=== PATIENT | female | born 1955 | race African-American/Black ===

== ENCOUNTER 2019-02-25 21:45 | Emergency (ER) | payer OTHER ==
[~2019-02-25] VITALS: Ht 165.1 cm; Wt 70.3 kg
[2019-02-25] MEDS ORDERED: ARICEPT 5 MG TAB5 MG PO (22:11)
[2019-02-25] MEDS ORDERED: CARVEDILOL3.125 MG PO (22:11)
[2019-02-25] MEDS ORDERED: PRINIVIL20 MG PO (22:12)
[2019-02-25] MEDS ORDERED: KLOR-CON 1010 MEQ PO (22:12)
[2019-02-25] MEDS ORDERED: HYDRALAZINE 10M10 MG PO (22:12)
[2019-02-25] MEDS ORDERED: LASIX 40 MG TAB40 M2 PO (22:12)
[2019-02-26 00:24] VITALS: BP 167/87
== END 2019-02-26 00:24 | disposition home or self-care (01) ==
LOC: ER 21:45
DX: R60.0 Localized edema (principal); I10 Essential (primary) hypertension; F03.90 Unspecified dementia, unspecified severity, without behavioral disturbance, psychotic disturbance, mood disturbance, and anxiety; M19.90 Unspecified osteoarthritis, unspecified site; I87.311 Chronic venous hypertension (idiopathic) with ulcer of right lower extremity; Z87.440 Personal history of urinary (tract) infections; Z88.8 Allergy status to other drugs, medicaments and biological substances